=== PATIENT | male | born 1945 ===

== ENCOUNTER → 2019-01-25 20:15 | Outpatient (REF) | payer OTHER, SELFPAY ==
[2019-01-25 21:16] LABS: Add Manual Diff / Slide Review NO; Basophils Absolute Auto 100 /uL (0-100); Eosinophils Absolute Auto 200 /uL (0-450); Eosinophils Percent Auto 3.2 % (2-4); Hemoglobin 15.2 g/dL (13.5-17.5); Lymphocytes Absolute Auto 1600 /uL (1100-4500); Lymphocytes Percent Auto 29.5 % (25-40); Mean Corpuscular HGB Conc 33.8 % (30-36); Mean Corpuscular Hemoglobin 32.5 PG (26-34); Mean Corpuscular Volume 96.1 fL (80-100); Monocytes Absolute Auto 400 /uL (0-900); Monocytes Percent Auto 6.9 % (3-14); Neutrophils Absolute Auto 3300 /uL (1500-7000); Neutrophils Percent Auto 59.4 % (50-75); Platelet Count 221 X10^3/uL (150-400); Red Blood Cell Count 4.68 X10^6/uL (4.5-5.9); Red Cell Distribution Width 13.4 % (11.6-14.8); White Blood Cell Count 5.6 X10^3/uL (4.5-11.0)
[2019-01-25 21:30] LABS: Alanine Aminotransferase 82 IU/L (21-72); Albumin 4.3 g/dL (3.5-5.0); Albumin Globulin Ratio 1.7 (1.0-2.8); Alkaline Phosphatase 42 U/L (38-126); Aspartate Aminotransferase 43 IU/L (17-59); Bilirubin Total 0.6 mg/dL (0.2-1.3); Blood Urea Nitrogen 14 mg/dL (9-20); Calcium 9.6 mg/dL (8.4-10.2); Carbon Dioxide 29 mmol/L (22-32); Chloride 103 mmol/L (98-107); Cholesterol 148 mg/dL (140-199); Estimated Glomerular Filt Rate > 60.0 mL/min (>60); Globulin 2.6 g/dL (1.7-4.1); Glucose 100 mg/dL (80-110); HDL Cholesterol 42 mg/dL (40-60); LDL Cholesterol Calculated 68 mg/dL (<100); Potassium 4.4 mmol/L (3.4-5.1); Sodium 140 mmol/L (137-145); Total Protein 6.9 g/dL (6.3-8.2); Triglycerides 192 mg/dL (35-150); Uric Acid 5.8 mg/dL (3.5-8.5)
[2019-01-26 03:12] LABS: HEMOLYSIS < 15 (0-50); Prostate Specific Antigen 0.353 ng/mL (0.10-4.00)
== END ==
LOC: LAB 20:15
PROVIDERS: PCP Family Medicine Geriatric Medicine; Visit Provider Family Medicine Geriatric Medicine
DX: R73.01 Impaired fasting glucose (principal); E78.5 Hyperlipidemia, unspecified; R53.83 Other fatigue; D40.0 Neoplasm of uncertain behavior of prostate; N20.0 Calculus of kidney
CPT/HCPCS: 36415; 80053; 80061; 84153; 84550; 85025

== ENCOUNTER → 2019-02-22 17:21 | Outpatient (REF) | payer OTHER, SELFPAY ==
[2019-02-22 18:51] LABS: Thyroid Stimulating Hormone 1.41 uIU/mL (0.47-4.68)
[2019-02-22 19:07] LABS: Vitamin B12 > 1000 pg/mL (239-931)
== END ==
LOC: LAB 17:21
PROVIDERS: PCP Family Medicine Geriatric Medicine; Visit Provider Family Medicine Geriatric Medicine
DX: R41.81 Age-related cognitive decline (principal); Z13.29 Encounter for screening for other suspected endocrine disorder
CPT/HCPCS: 36415; 82607; 84443